=== PATIENT | male | born 1990 | race Caucasian/White ===

== ENCOUNTER 2016-06-10 18:25 | Emergency (ER) | payer OTHER ==
--- NOTE | 2016-06-10 18:39 | CPEKG ---
Heart Rate: 84 RR Interval: 714 P-R Interval: 140 QRSD Interval: 98 QT Interval: 368 QTC Interval: 436 P [place]: 65 QRS [place]: -34 T Wave [place]: 22 EKG Severity - OTHERWISE NORMAL ECG - EKG Impression: SINUS RHYTHM EKG Impression: LEFT AXIS DEVIATION Electronically Signed By: Charbel Lemos 10-Jun-2016 19:28:05
[2016-06-10] MEDS ORDERED: MAALOX/LIDO/HYOSC GI COCKTAIL 55 ML BOTTLE PO ONE (18:51)
--- NOTE | 2016-06-10 18:54 | EDPHY ---
H & P Stated Complaint: etoh last night/cp started this evening/anxious/panicky Time Seen by Provider: 06/10/16 18:34 HPI/ROS: CHIEF COMPLAINT: Epigastric pain HISTORY OF PRESENT ILLNESS: The patient presents to the ED with several episodes of epigastric and substernal discomfort. The symptoms have been occurring sporadically over the past 20 minutes. Patient does report a prior history of anxiety. He states these symptoms feel different than a typical anxiety attack. The patient denies history of trauma. He denies fever, cough or congestion. The patient denies prior history of heart disease. The patient denies any illicit drug use outside of marijuana. The patient did have some alcohol to drink last night. REVIEW OF SYSTEMS: A comprehensive 10 point review of systems is otherwise negative aside from elements mentioned in the history of present illness. Source: Patient - Personal History Current Tetanus/Diphtheria Vaccine: Yes - Medical/Surgical History Hx Asthma: No Hx Chronic Respiratory Disease: No Hx Diabetes: No Hx Cardiac Disease: No Hx Renal Disease: No Hx Cirrhosis: No Hx Alcoholism: No Hx HIV/AIDS: No Hx Splenectomy or Spleen Trauma: No Other PMH: denies - Social History Smoking Status: Never smoked - Physical Exam Exam: General Appearance: Alert, no distress Eyes: Pupils equal and round no pallor or injection ENT, Mouth: Mucous membranes moist Respiratory: There are no retractions, lungs are clear to auscultation Cardiovascular: Regular rate and rhythm Gastrointestinal: Abdomen is soft and nontender, no masses, bowel sounds normal Neurological: A&O, normal motor function, normal sensory exam, normal cranial nerves Skin: Warm and dry, no rashes Musculoskeletal: Neck is supple nontender Extremities: symmetrical, full range of motion Constitutional: Initial Vital Signs Temperature (C) 36.3 C 06/10/16 18:29 Heart Rate 92 06/10/16 18:29 Respiratory Rate 22 H 06/10/16 18:29 Blood Pressure 149/88 H 06/10/16 18:29 O2 Sat (%) 94 06/10/16 18:29 O2 Delivery Mode Room Air Allergies/Adverse Reactions: No Known Allergies Allergy (Unverified 06/10/16 18:29) Home Medications: Medication Instructions Recorded NK [No Known Home Meds] 06/10/16 Medical Decision Making - Diagnostics EKG Interpretation: EKG: Complete [facility] Summary impression: Sinus rhythm Imaging: Chest x-ray PA lateral: Images reviewed by myself, negative for pneumonia, pneumothorax or acute abnormality. Study results also reviewed with radiologist Dr. Vargas. ED Course/Re-evaluation: The patient presents to the ED with episodic substernal chest discomfort which I feel is most likely gastrointestinal in nature. The patient has no risk factors for cardiac disease. The patient's chest x-ray demonstrates no evidence of a pneumothorax. The patient's vital signs are stable. The patient does report admit to alcohol consumption last night which may be contributing to his symptoms today. The patient was given a GI cocktail at 7:00 p.m.. The patient's electrolytes and lipase are within normal limits. Patient was reexamined at 8:00 p.m.. His symptoms have entirely resolved after a GI cocktail. At this point time I feel that he can safely be discharged home. He is advised to use ranitidine and Maalox as needed. He is instructed to return to the ED for markedly worsening symptoms or other concerns. Differential Diagnosis: Differential diagnosis considered includes pericarditis, myocardial infarction, pneumothorax, esophageal spasm, arrhythmia, anxiety, pancreatitis, gastritis - Data Points Laboratory Results: Laboratory Results 06/10/16 18:42 06/10/16 18:42 Sodium 141 mEq/L (134-144) Potassium 3.6 mEq/L (3.5-5.2) Chloride 102 mEq/L (97-110) Carbon Dioxide 24 mEq/l (22-31) Anion Gap 15 mEq/L (8-16) BUN 12 mg/dL (7-23) Creatinine 1.0 mg/dL (0.7-1.3) Estimated GFR > 60 Glucose 92 mg/dL (70-100) Calcium 9.9 mg/dL (8.5-10.4) Lipase 54.0 IU/L (23-300) Medications Given: Discontinued Medications Miscellaneous Medication (Gi Cocktail) 55 ml PO EDNOW ONE Stop: 06/10/16 18:52 Last Admin: 06/10/16 19:11 Dose: 55 ml Departure - Departure Disposition: Home, Routine, Self-Care Clinical Impression: Chest pain Qualifiers: Chest pain type: unspecified Qualifier Code: (R07.9) Chest pain, unspecified Condition: Good Instructions: Esophageal Spasm (ED) Additional Instructions: 1. Please return to the ED for markedly worsening symptoms or other concerns. 2. Please use [id number] antacids such as Zantac and Maalox for any recurrent symptoms
[2016-06-10 19:03] LABS: ANION GAP 15 mEq/L (8-16); CALCIUM 9.9 mg/dL (8.5-10.4); CARBON DIOXIDE 24 mEq/l (22-31); CHLORIDE 102 mEq/L (97-110); GLOMERULAR FILTRATION RATE > 60; GLUCOSE 92 mg/dL (70-100); POTASSIUM 3.6 mEq/L (3.5-5.2); SODIUM 141 mEq/L (134-144)
[2016-06-10 19:12] VITALS: BP 128/60
--- NOTE | 2016-06-10 19:14 | DX ---
Chest, Single View at 1858 hours History: Chest pain, suspect pneumothorax. Comparison: None. Findings: Cardiac silhouette is within normal range. No pneumonia, congestive heart failure, pleural effusion, or pneumothorax. Impression: 1. No pneumothorax. 2. No pneumonia.
[2016-06-10 19:58] VITALS: PULSE 68; RESP 16; TEMP 98.1; O2SAT 96
== END 2016-06-10 19:56 | disposition home or self-care (01) ==
DX: R07.9 Chest pain, unspecified (principal)